=== PATIENT | female | born 1965 | race Hispanic/Latino ===

== ENCOUNTER → 2019-04-20 | Outpatient (CLI) | payer OTHER ==
[~2019-04-20] MED LIST: AEC81 PO; AMLO5TAB4 PO; DULO40CA2 PO; FLUT16H NASAL; GABA-531 PO; LOSA1TAB12 PO; SIMV-43 PO; SIMV10TA97 PO
== END | disposition home or self-care (01) ==
LOC: OIH 12:44
PROVIDERS: ATTEND Family Medicine
DX: R07.9 Chest pain, unspecified (principal); I63.9 Cerebral infarction, unspecified
CPT/HCPCS: 71046

== ENCOUNTER 2019-12-08 10:22 | Emergency (ER) | payer OTHER, SELFPAY ==
[2019-12-08 11:21] LABS: BASOPHILS % (AUTO) 0.2 % (0.0-5.0); EOSINOPHILS % (AUTO) 0.2 % (0.0-8.0); HEMATOCRIT 40.1 % (36-48); LYMPHOCYTES % (AUTO) 4.3 % (21.0-51.0); MEAN CORPUSCULAR HEMOGLOBIN 28.7 pg (27.0-33.0); MEAN CORPUSCULAR HGB CONC 32.9 g/dL (32.0-36.0); MEAN CORPUSCULAR VOLUME 87.2 fL (79-99); MONOCYTES % (AUTO) 3.9 % (3.0-13.0); PLATELET COUNT (AUTO) 248 K/uL (130-400); RED CELL DISTRIBUTION WIDTH 13.8 % (11.0-15.5); WHITE BLOOD COUNT (AUTO) 16.6 K/uL (4.8-10.8)
[2019-12-08] MEDS ORDERED: SODIUM CHLORIDE 0.9% 1000ML 1,000 ML IV ONE (11:23)
[2019-12-08] MEDS ORDERED: METOCLOPRAMIDE 10 MG/2 ML VIAL ONE (11:23)
[2019-12-08] MEDS ORDERED: KETOROLAC TROMETHAMINE 30MG/ML ONE (11:23)
[2019-12-08] MEDS ORDERED: ONDANSETRON HCL 4 MG/2 ML VIAL ONE (11:23)
[2019-12-08 11:41] LABS: CREATININE 0.9 mg/dL (0.5-1.5); POTASSIUM 3.5 mmol/L (3.5-5.1)
[2019-12-08 11:46] LABS: ALBUMIN 3.6 g/dL (3.5-5.0); BILIRUBIN,TOTAL 3.5 mg/dL (0.2-1.0); TOTAL PROTEIN, SERUM 7.5 g/dL (6.0-8.3)
[2019-12-08 12:32] LABS: INR 1.21 (0.85-1.15); PARTIAL THROMBOPLASTIN TIME 28.3 SEC (26.3-35.5); PROTHROMBIN TIME 12.5 SEC (9.6-11.6)
[2019-12-08] MEDS ORDERED: ZOSYN 3.375GM+NS 50ML 50 ML IV ONE (14:15)
== END 2019-12-08 16:19 | disposition short-term general hospital (02) ==
LOC: EDH 10:22
DX: K81.0 Acute cholecystitis (principal); R51 Headache; R94.5 Abnormal results of liver function studies; Z20.828 Contact with and (suspected) exposure to other viral communicable diseases; I10 Essential (primary) hypertension; M06.9 Rheumatoid arthritis, unspecified; E11.40 Type 2 diabetes mellitus with diabetic neuropathy, unspecified; Z90.710 Acquired absence of both cervix and uterus; Z79.899 Other long term (current) drug therapy
CPT/HCPCS: 36415; 70450; 76705; 80053; 82948; 83690; 84484; 85025; 85610; 85730; 87426; 93005; 96361 ×2; 96365; 96366; 96375; 99285; J1885; J2405; J2543; J2765; J7030

== ENCOUNTER 2023-02-07 11:44 | Emergency (ER) | payer OTHER, MEDICARE ==
[~2023-02-07] VITALS: Ht 157.5 cm; Wt 73.9 kg
[~2023-02-07 11:44] MED LIST changes: -LOSA1TAB12 PO; +[UNRECOGNIZED DRUG - CODE] PO
[2023-02-07 12:36] LABS: BASOPHILS # (AUTO) 0.03 K/uL (0.00-0.20); BASOPHILS % (AUTO) 0.3 % (0.0-5.0); EOSINOPHILS # (AUTO) 0.15 K/uL (0.00-0.70); EOSINOPHILS % (AUTO) 1.6 % (0.0-8.0); HEMATOCRIT 34.5 % (36-48); IMMATURE GRANULOCYTE ABSOLUTE 0.02 K/uL (0-1); LYMPHOCYTES # (AUTO) 3.3 K/uL (1.0-4.8); LYMPHOCYTES % (AUTO) 35.2 % (21.0-51.0); MEAN CORPUSCULAR HEMOGLOBIN 24.5 pg (27.0-33.0); MEAN CORPUSCULAR VOLUME 78.9 fL (79-99); MONOCYTES # (AUTO) 0.6 K/uL (0.1-1.0); MONOCYTES % (AUTO) 5.9 % (3.0-13.0); NEUTROPHILS # (AUTO) 5.3 K/uL (1.8-7.7); NEUTROPHILS % (AUTO) 56.8 % (40.0-77.0); PLATELET COUNT (AUTO) 354 K/uL (130-400); RED BLOOD CELL COUNT(AUTO) 4.37 MIL/uL (4.00-5.50); RED CELL DISTRIBUTION WIDTH 17.6 % (11.0-15.5); WHITE BLOOD COUNT (AUTO) 9.3 K/uL (4.8-10.8)
[2023-02-07 12:47] LABS: CREATININE 0.6 mg/dL (0.5-1.5); POTASSIUM 3.7 mmol/L (3.5-5.1)
[2023-02-07] MEDS ORDERED: METH-811 PO (12:49)
[2023-02-07] MEDS ORDERED: CHOL500051 PO (12:49)
[2023-02-07] MEDS ORDERED: MAGN100C5 PO (12:49)
[2023-02-07] MEDS ORDERED: METF-446 PO (12:49)
[2023-02-07] MEDS ORDERED: DULO60CA64 PO (12:49)
[2023-02-07] MEDS ORDERED: AEC81 PO (12:49)
[2023-02-07] MEDS ORDERED: AMLO-258 PO (12:49)
[2023-02-07 12:54] LABS: ALBUMIN 3.7 g/dL (3.5-5.0); BILIRUBIN,TOTAL 0.3 mg/dL (0.2-1.0); INR 0.94 (0.85-1.15); PROTHROMBIN TIME 10.9 SEC (9.6-11.6); TOTAL PROTEIN, SERUM 7.6 g/dL (6.0-8.3)
[2023-02-07 12:55] LABS: PARTIAL THROMBOPLASTIN TIME 27.3 SEC (26.3-35.5)
[2023-02-07 13:13] LABS: B-TYPE NATRIURETIC PEPTIDE 26 pg/mL (0-100)
[2023-02-07 13:40] VITALS: BP 116/77; PULSE 65; RESP 16; O2SAT 100
[2023-02-07 13:40] LABS: APPEARANCE,URINE CLOUDY (CLEAR); BILIRUBIN,URINE NEGATIVE (NEGATIVE); COLOR,URINE YELLOW (YELLOW); GLUCOSE, URINE (UA) NEGATIVE (NEGATIVE); KETONES,URINE NEGATIVE (NEGATIVE); LEUKOCYTE ESTERASE ,URINE 500 Leu/uL (NEGATIVE); NITRATE,URINE NEGATIVE (NEGATIVE); OCCULT BLOOD,URINE NEGATIVE (NEGATIVE); PH,URINE 6.5 (5.0-8.0); PROTEIN,URINE 30 mg/dL (NEGATIVE)
[2023-02-07 13:42] LABS: ADD UA MICROSCOPIC YES
[2023-02-07 14:01] LABS: BACTERIA,URINE RARE /HPF (None Seen); MUCUS,URINE MANY LPF (None Seen); NON-SQUAMOUS EPITHELIAL CELL 1 /HPF (0-2); SQUAMOUS EPITHELIAL CELL,UR FEW /HPF (0-2); WBC,URINE 51-100 /HPF (0-1)
[2023-02-07] MEDS ORDERED: CEPH500B PO (14:21)
[2023-02-07] MEDS ORDERED: CEPHALEXIN 500 MG CAPSULE PO ONE (14:30)
== END 2023-02-07 14:43 | disposition home or self-care (01) ==
LOC: EDH 11:44
DX: N39.0 Urinary tract infection, site not specified (principal); E11.9 Type 2 diabetes mellitus without complications; E78.00 Pure hypercholesterolemia, unspecified; I10 Essential (primary) hypertension; Z79.82 Long term (current) use of aspirin; Z79.899 Other long term (current) drug therapy; Z86.73 Personal history of transient ischemic attack (TIA), and cerebral infarction without residual deficits; Z90.49 Acquired absence of other specified parts of digestive tract
CPT/HCPCS: 36415; 70450; 71045; 80053; 81001; 82550; 83721; 83880; 84484; 85025; 85610; 85730; 87088; 93005

== ENCOUNTER 2023-12-19 10:04 | Emergency (ER) | payer OTHER ==
[~2023-12-19] VITALS: Ht 157.5 cm; Wt 72.6 kg
[~2023-12-19 10:04] MED LIST changes: +ALBUHFA IH; +AMLO-258 PO; -AMLO5TAB4 PO; +CHOL500051 PO; -DULO40CA2 PO; +DULO60CA64 PO; -FLUT16H NASAL; -GABA-531 PO; +GABA-534 PO; +LACT1TAB26 PO; +LEVO-70 PO; +METF-446 PO; +METH-811 PO; -SIMV10TA97 PO
[2023-12-19 10:48] LABS: BASOPHILS # (AUTO) 0.04 K/uL (0.00-0.20); BASOPHILS % (AUTO) 0.3 % (0.0-5.0); EOSINOPHILS # (AUTO) 0.39 K/uL (0.00-0.70); EOSINOPHILS % (AUTO) 2.8 % (0.0-8.0); HEMATOCRIT 40.7 % (36-48); IMMATURE GRANULOCYTE ABSOLUTE 0.06 K/uL (0-1); LYMPHOCYTES # (AUTO) 3.5 K/uL (1.0-4.8); LYMPHOCYTES % (AUTO) 25.2 % (21.0-51.0); MEAN CORPUSCULAR HEMOGLOBIN 28.8 pg (27.0-33.0); MEAN CORPUSCULAR HGB CONC 32.9 g/dL (32.0-36.0); MEAN CORPUSCULAR VOLUME 87.5 fL (79-99); MONOCYTES # (AUTO) 0.8 K/uL (0.1-1.0); MONOCYTES % (AUTO) 5.7 % (3.0-13.0); NEUTROPHILS # (AUTO) 9.2 K/uL (1.8-7.7); NEUTROPHILS % (AUTO) 65.6 % (40.0-77.0); PLATELET COUNT (AUTO) 311 K/uL (130-400); RED BLOOD CELL COUNT(AUTO) 4.65 MIL/uL (4.00-5.50)
[2023-12-19 11:00] LABS: CREATININE 0.8 mg/dL (0.5-1.0); POTASSIUM 3.3 mmol/L (3.5-5.1)
[2023-12-19] MEDS: KETOROLAC 60 MG VIAL (30MG/ML) IM ONE (13:52)
[2023-12-19] MEDS: cefTRIAXone 1G VIAL IM ONE (13:52)
[2023-12-19] MEDS ORDERED: CLIN-141 PO (14:07)
[2023-12-19 14:45] VITALS: BP 128/74; PULSE 82; RESP 18; O2SAT 96
== END 2023-12-19 14:54 | disposition home or self-care (01) ==
LOC: EDH 10:04
DX: L03.115 Cellulitis of right lower limb (principal); E11.9 Type 2 diabetes mellitus without complications; E78.00 Pure hypercholesterolemia, unspecified; I10 Essential (primary) hypertension; Z79.82 Long term (current) use of aspirin; Z79.84 Long term (current) use of oral hypoglycemic drugs; Z79.899 Other long term (current) drug therapy; Z86.73 Personal history of transient ischemic attack (TIA), and cerebral infarction without residual deficits; Z90.710 Acquired absence of both cervix and uterus; Z98.890 Other specified postprocedural states
CPT/HCPCS: 99284; 80048; 85025; 36415; 96372 ×2; J0696; J1885

== ENCOUNTER 2024-03-27 14:06 | Emergency (ER) | payer OTHER ==
[~2024-03-27] VITALS: Ht 157.5 cm; Wt 74.8 kg
[~2024-03-27 14:06] MED LIST changes: +CLIN-141 PO
--- NOTE | 2024-03-27 14:35 | ERN ---
ED Note History of Present Illness Stated Complaint: FEVER Chief Complaint: Fever Time Seen by MD: 14:14 Dictation: This 58-year-old female presents in the emergency department with high fever, chills, headache, myalgias and arthralgias and a dry cough. Symptoms began two days ago Her granddaughter had a febrile illness a couple of days ago but was not sick enough to go to the doctor. The patient has been under treatment for urinary tract infection and recently had been on Keflex in late February. That was followed my nitrofurantoin and fluconazole from her x ray technologist. She uses a nebulizer and is taking some pybb-eyy-gzedznq cold medication that includes acetaminophen 325 mg which she took 2 hours ago. She states the headache is severe bifrontal but there was no stiff neck or photophobia. She has not had nausea or vomiting. Her cough is dry. She is urinating normally. The patient reports a history of asthma and uses a nebulizer at home. She has diabetes, hypertension, hyperlipidemia and has had a hysterectomy. She lives at home with family. She is a social drinker. She does not smoke or use recreational drugs Allergies: Coded Allergies: No Known Allergies (Verified Allergy, Unknown, 12/08/18) Home Meds Active Scripts Clindamycin HCl (Clindamycin HCl) 300 Mg Capsule, 1 CAP PO QID for 7 Days, #28 CAP 0 Refills Prov:JAVY CAPONE MD 12/19/23 Lactobacillus Acidophilus (Probiotic Acidophilus) 2 Billion Cell Tablet, 1 EACH PO ACHS for 5 Days, #20 TAB Prov:EMILY THAKKAR NP 06/03/23 Levofloxacin (Levofloxacin) 500 Mg Tablet, 500 MG PO DAILY for 5 Days, #5 TAB Prov:EMILY THAKKAR NP 06/03/23 Simvastatin (Simvastatin) 20 Mg Tablet, 40 MG PO HS for 30 Days, #30 TAB Prov:DUNCAN GREGORY Jr., MD 12/17/18 Reported Medications Albuterol Sulfate (Ventolin Hfa/Proventil Hfa/Proair Hfa) 90 Mcg Puff, 90 MCG IH AD PRN for WHEEZING, INHALER 06/01/23 Gabapentin (Gabapentin) 400 Mg Capsule, 300 MG PO TID, CAP 06/01/23 Methocarbamol (Methocarbamol) 500 Mg Tablet, 500 MG PO Q6HPRN PRN for MUSCLE SPASMS, TAB 02/07/23 Cholecalciferol (Vitamin D3) (Vitamin D3) 125 Mcg (5000 Unit) Capsule, 125 MCG PO DAILY, CAP 02/07/23 Aspirin (ASPIRIN 81 MG ECTAB) 81 Mg Ectab, 81 MG PO DAILY, TAB.EC 02/07/23 Metformin HCl (Metformin HCl) 1,000 Mg Tablet, 1000 MG PO BIDMEALS, TAB 02/07/23 Duloxetine HCl (Duloxetine HCl) 60 Mg Capsule.dr, 60 MG PO DAILY, CAP 02/07/23 Amlodipine Besylate (Amlodipine Besylate) 10 Mg Tablet, 10 MG PO DAILY for 30 Days, #30 TAB 0 Refills 02/07/23 Losartan/Hydrochlorothiazide (Hyzaar 100-25 Tablet) 1 Each Tablet, 1 EACH PO DAILY, TAB 12/08/18 Past Medical History Past Medical History: Diabetes-Type II, High Cholesterol, Hypertension Additional Past Medical Hx: stroke 2019 left weakness Surgical History: Hysterectomy Surgical History Other: ABD SX, LT BREAST SX RN Note Reviewed/Agreed w/PFSH: Yes Review of System Dictation All pertinent systems reviewed, negative except as documented in the HPI The ROS is obtained from patient GENERAL/CONSTITUTIONAL: Negative except as documented in HPI. ENT: Negative except as documented in HPI. CARDIOVASCULAR: Negative except as documented in HPI. RESPIRATORY: Negative except as documented in HPI. GASTROINTESTINAL: Negative except as documented in HPI. GENITOURINARY: Negative except as documented in HPI. MUSCULOSKELETAL: Negative except as documented in HPI. SKIN: Negative except as documented in HPI. NEUROLOGIC: Negative except as documented in HPI. Initial Vital Sign VS Vital Signs Date Time Temp Pulse Resp B/P (MAP) Pulse Ox O2 Delivery O2 Flow Rate FiO2 03/27/24 14:13 102.2 105 20 118/75 96 Room Air 0 03/27/24 14:42 21 Physical Exam Dictation VITAL SIGNS: note is made of triage vital signs. The patient is able to ambulate to and from the bathroom without difficulty on arrival CONSTITUTIONAL: This is a febrile patient who is awake, alert, and appropriately interactive. HEAD: Normocephalic, Atraumatic. EYES: Periorbital areas with no swelling, redness, or edema. Lids and lashes are normal. Conjunctival injection is absent. Sclera anicteric. Pupils equal, round, reactive to light. ENT: No nasal discharge noted. Posterior pharynx is without exudate, redness, swelling, masses, or evidence of obstruction. Uvula midline. Mucous membranes dry NECK: Trachea midline, no masses palpated, and no cervical lymphadenopathy. No swelling. Supple, full range of motion without nuchal rigidity. No vertebral point tenderness. No meningismus. CHEST/AXILLA: Normal chest wall appearance and motion. No tenderness. No crepitus. CV: Normal rate, regular rhythm. No murmur. No edema. RESPIRATORY:Respiratory rate is normal. Bilateral equal breath sounds with good airflow. Mild inspiratory and expiratory wheezing noted. No increased work of breathing, no retractions. Dry cough is noted ABDOMEN: Inspection normal. No distention is appreciated. Bowel sounds are normal. No mass or organomegaly is appreciated. There is no tenderness. No rebound. No rigidity. No voluntary or involuntary guarding. BACK: Inspection is normal. No midline tenderness is appreciated. The patient appears comfortable when moving. : No CVA tenderness or bladder tenderness. SKIN: Hot to the touch with normal turgor. No diaphoresis Capillary refill less than 3 seconds. Normal color.No rash. No cellulitis or abscess. No evidence of acute injury. MS/Extremity: There is no calf tenderness. Baseline range of motion is noted in all 4 extremities. There are no deformities. NEURO: Awake and alert, lucid. Facies symmetric and speech is clear. Motor strength 5/5 in all extremities. Sensory grossly intact. PSYCH: Patient is appropriately attentive and cooperative without evidence of hallucination. IVF Sepsis Management BMI >30kg/m2?: Yes Results (Laboratory/Radiology) Laboratory/Radiology Laboratory Tests Test 03/27/24 14:34 03/27/24 15:51 White Blood Count 12.1 K/uL (4.8-10.8) H Red Blood Count 5.02 MIL/uL (4.00-5.50) Hemoglobin 14.1 g/dL (12.0-16.0) Hematocrit 42.7 % (36-48) Mean Corpuscular Volume 85.1 fL (79-99) Mean Corpuscular Hemoglobin 28.1 pg (27.0-33.0) Mean Corpuscular Hemoglobin Concent 33.0 g/dL (32.0-36.0) Red Cell Distribution Width 15.3 % (11.0-15.5) Platelet Count 260 K/uL (130-400) Mean Platelet Volume 10.0 fL (7.5-10.5) Immature Granulocyte % (Auto) 0.4 % (0-1) Neutrophils (%) (Auto) 82.0 % (40.0-77.0) H Lymphocytes (%) (Auto) 9.4 % (21.0-51.0) L Monocytes (%) (Auto) 7.3 % (3.0-13.0) Eosinophils (%) (Auto) 0.5 % (0.0-8.0) Basophils (%) (Auto) 0.4 % (0.0-5.0) Neutrophils # (Auto) 9.9 K/uL (1.8-7.7) H Lymphocytes # (Auto) 1.1 K/uL (1.0-4.8) Monocytes # (Auto) 0.9 K/uL (0.1-1.0) Eosinophils # (Auto) 0.06 K/uL (0.00-0.70) Basophils # (Auto) 0.05 K/uL (0.00-0.20) Absolute Immature Granulocyte (auto 0.05 K/uL (0-1) Nucleated Red Blood Cells 0.0 % (0.0-0.19) White Cell Morphology Comment See comments Sodium Level 136 mmol/L (136-145) Potassium Level 3.8 mmol/L (3.5-5.1) Chloride Level 100 mmol/L (101-111) L Carbon Dioxide Level 30 mmol/L (21-32) Blood Urea Nitrogen 13 mg/dL (7-18) Creatinine 0.8 mg/dL (0.5-1.0) Glomerular Filtration Rate Calc 86 mL/min (>90) Random Glucose 169 mg/dL (70-105) H Lactic Acid Level 2.0 mmol/L (0.8-2.5) Total Calcium 8.9 mg/dL (8.5-10.1) B-Type Natriuretic Peptide 9 pg/mL (0-100) Influenza Type A Antigen Positive For Type A Influenza Type B Antigen Negative For Type B SARS-CoV-2, RNA, NAAT NEGATIVE SARS CoV-2 Group A Streptococcus Rapid negative (NEGATIVE) Urine Color LIGHT-YELLOW (YELLOW) Urine Appearance CLEAR (CLEAR) Urine pH 6.0 (5.0-8.0) Urine Specific [place] 1.006 (1.001-1.031) Urine Protein NEGATIVE mg/dL (NEGATIVE) Urine Glucose (UA) 70 mg/dL (NEGATIVE) H Urine Ketones NEGATIVE mg/dL (NEGATIVE) Urine Occult Blood +- (TRACE) (NEGATIVE) H Urine Nitrate NEGATIVE (NEGATIVE) Urine Bilirubin NEGATIVE mg/dL (NEGATIVE) Urine Urobilinogen 0.2 mg/dL (0.2-1.0) Urine Leukocyte Esterase NEGATIVE Hallie/uL Urine RBC 0-1 /HPF (0-1) Urine WBC 0-1 /HPF (0-1) Urine Squamous Epithelial Cells FEW /HPF (0-2) Urine Bacteria FEW /HPF (None Seen) Labs Reviewed?: Yes X-RAY Comment: Institution : [facility] Accession No. 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 The pulmonary vascularity and rosalba appear normal. No abnormal pulmonary parenchymal opacity or consolidation identified. No significant pleural effusion noted. No pneumothorax detected. IMPRESSION: No radiographic evidence for any acute cardiopulmonary process. DICTATED BY: ADAL MELÉNDEZ MD DATE: 03/27/241433 ELECTRONICALLY SIGNED BY: ADAL MELÉNDEZ MD DATE: 03/27/24 1437 ED Course ED Course Orders Procedure Category Date Status Time Cbc With Differential LAB 03/27/24 Complete 14:18 Blood Cult SEA 03/27/24 In Process 14:18 Urinalysis Profile LAB 03/27/24 Complete 14:18 Chest 1vw RAD 03/27/24 Resulted 14:18 0.9%Nacl 1000ml (Ns PHA 03/27/24 In Process 1000ml) 14:30 Lactic Acid LAB 03/27/24 Complete 14:18 Basic Metabolic Panel LAB 03/27/24 Complete 14:18 Influenza Type A & B, LAB 03/27/24 Complete Rapid 14:18 Rapid (Group A Strep) LAB 03/27/24 Complete 14:18 Covid Rna Naat LAB 03/27/24 Complete 14:18 B-Type Natriuretic LAB 03/27/24 Complete Peptide 14:18 Ibuprofen 600 Mg PHA 03/27/24 Complete Tablet (Motrin) 14:30 Ipratropium/Albuterol PHA 03/27/24 Complete Neb (Duoneb) 14:30 Oseltamivir Phosphate PHA 03/27/24 Complete (Tamiflu) 15:30 Methylprednisolone PHA 03/27/24 Complete Succ 125mg (Solu-Medr 15:30 Current Medications Medications (Trade) Dose Ordered Sig/Satinder Route PRN Reason Start Time Stop Time Status Last Admin Dose Admin Albuterol (DUOneb) 1 udvial ONCE ONCE IH 03/27/24 14:30 03/27/24 14:31 DC 03/27/24 15:04 Ibuprofen (moTRIN) 600 mg ONCE ONCE PO 03/27/24 14:30 03/27/24 14:31 DC 03/27/24 14:39 Methylprednisolone Sodium Succinate (Solu-medROL 125MG) 125 mg ONCE ONCE IVP 03/27/24 15:30 03/27/24 15:31 DC 03/27/24 15:38 Oseltamivir Phosphate (Tamiflu) 75 mg ONCE ONCE PO 03/27/24 15:30 03/27/24 15:31 DC 03/27/24 15:13 Sodium Chloride 2,244 ml @ 748 mls/hr ONCE ONCE IV 03/27/24 14:30 03/27/24 17:29 03/27/24 14:39 Vital Signs Date Time Temp Pulse Resp B/P (MAP) Pulse Ox O2 Delivery O2 Flow Rate FiO2 03/27/24 16:06 100.0 80 20 108/64 94 Room Air* 0 21 03/27/24 15:14 100.2 84 18 103/61 96 Room Air* 0 21 03/27/24 15:07 93 18 03/27/24 14:42 102.0 95 18 109/72 96 Room Air* 0 21 03/27/24 14:13 102.2 105 20 118/75 96 Room Air 0 Medical Decision Making MDM INITIAL IMPRESSION Initial history and physical concerning for URI symptoms with fever we will patient with multiple medical problems Viral syndrome versus pneumonia versus possible sepsis. Exam is not suggestive of meningitis Chest pain is only present with cough. I have no reason to suspect cardiac ischemia or an acute abdomen Contributing medical problems: Patient has been on several antibiotics recently. I have reviewed the triage nursing notes and vital signs. Patient has fever with a well-preserved blood pressure and mild tachycardia. Saturation is good Initial plan: Septic workup, IV fluids, antipyretics. Antibiotics only as indicated DATA REVIEW I have reviewed additional NN, repeat VS, and monitoring where indicated. Patient has defervesced. She is ambulatory without difficulty. Mcdonald diagnostic results: Sugar is mildly elevated at 169 and a flu a is positive. White count is 12.1 with 82% segs. Hemoglobin and platelets are normal. Lactic acid is 2.0. BNP is negative and the chest x-ray is clear per Radiology Other independent historian: none Review of external data: None. ED COURSE Interventions: Patient received IV fluids, antipyretics and respiratory treat ment as well as some steroids for wheezing Reassessment: Repeat examination shows decreased wheezing and no evidence of respiratory distress. Patient is feeling much better DISPOSITION Final diagnostic impression: Influenza a with wheezing I discussed my findings, clinical impression and treatment recommendations with the patient. I have reviewed the social factors contributing to the patient's presentation and disposition planning. My final plan for disposition was made based upon clinical findings, response to treatment and discussion with the patient regarding management options. Hospitalization is not indicated due to low risk of short term progression, complication, morbidity or mortality related to the current diagnosis At the time of discharge, the vital signs are within acceptable limits. Patient has been able to take oral liquids. The discharge treatment plan includes Tamiflu, nebulized treatments and fever management I advised the patient that the flu tablet she was taking contain only 325 mg of acetaminophen which may be too low to control the fever alone. Incidental findings discussed: none Questions were invited and answered in layman's terms. I have emphasized my follow-up recommendations and reviewed ED return precautions. I have answered any questions in layman's terms. The patient understands that they will have to arrange for out-patient follow-up for recheck of today's condition. The patient is stable and appropriate for discharge from the ED. This dictation was prepared using Hango voice recognition software. Occasional voice recognition errors may occur. When identified, these errors have been corrected. While every attempt is made to correct errors during dictation, errors may still exist. DX & DISP Disposition: Discharge Decision to Admit Date: Mar 27, 2024 Decision to Admit Time: 16:19 Departure Impression: Primary Impression: Influenza A Additional Impressions: Asthma exacerbation, Dehydration, Fever Condition: Stable Scripts Oseltamivir Phosphate (Tamiflu) 75 Mg Cap 75 MG PO BID, #10 CAP 0 Refills Prov: JAVY CAPONE MD 03/27/24 Additional Instructions: Take the Tamiflu one capsule 2 times a day for five days. Use the nebulizer up to 4 times a day to control cough and wheeze. For increasing shortness of breath return to the emergency department. Be sure to use adequate fever medication, mwyi-zkb-nsaladt acetaminophen to regular strength tablets every 4-6 hours or ibuprofen three tsdv-vap-jgmjmbg tablets every 6-8 hours. Increase fluid intake while you are sick and monitor your blood sugar as it may go up while you fight the infection. Return to the emergency department if you are unable to eat or drink, if you develop increasing respiratory difficulty or other worsening. Expect to be ill for several days. Referrals: BRYCE CHILDS PA-C (PCP) Time of Disposition: 16:22 JAVY CAPONE MD Mar 27, 2024 14:35
[2024-03-27] MEDS: ibuPROFEN 600 MG TABLET PO ONE (14:39)
[2024-03-27] MEDS: [UNRECOGNIZED DRUG - OTHER] IV ONE (14:39)
[2024-03-27 14:46] LABS: BASOPHILS # (AUTO) 0.05 K/uL (0.00-0.20); BASOPHILS % (AUTO) 0.4 % (0.0-5.0); EOSINOPHILS # (AUTO) 0.06 K/uL (0.00-0.70); EOSINOPHILS % (AUTO) 0.5 % (0.0-8.0); HEMATOCRIT 42.7 % (36-48); IMMATURE GRANULOCYTE ABSOLUTE 0.05 K/uL (0-1); LYMPHOCYTES # (AUTO) 1.1 K/uL (1.0-4.8); LYMPHOCYTES % (AUTO) 9.4 % (21.0-51.0); MEAN CORPUSCULAR HEMOGLOBIN 28.1 pg (27.0-33.0); MEAN CORPUSCULAR VOLUME 85.1 fL (79-99); MONOCYTES # (AUTO) 0.9 K/uL (0.1-1.0); MONOCYTES % (AUTO) 7.3 % (3.0-13.0); NEUTROPHILS # (AUTO) 9.9 K/uL (1.8-7.7); PLATELET COUNT (AUTO) 260 K/uL (130-400); RED BLOOD CELL COUNT(AUTO) 5.02 MIL/uL (4.00-5.50); RED CELL DISTRIBUTION WIDTH 15.3 % (11.0-15.5); WHITE BLOOD COUNT (AUTO) 12.1 K/uL (4.8-10.8)
[2024-03-27 14:55] LABS: CREATININE 0.8 mg/dL (0.5-1.0); POTASSIUM 3.8 mmol/L (3.5-5.1); RAPID GROUP A STREP negative (NEGATIVE)
[2024-03-27 15:00] LABS: SARS-CoV-2, RNA, NAAT NEGATIVE SARS CoV-2 (NEGATIVE)
[2024-03-27] MEDS: IpraTROPium/alBUTERol SULFATE 3 ML SOLUTION IH ONE (15:04)
[2024-03-27 15:06] LABS: INFLUENZA TYPE B Negative For Type B (NEGATIVE)
[2024-03-27 15:07] VITALS: PULSE 93; RESP 18
[2024-03-27 15:09] LABS: INFLUENZA TYPE A Positive For Type A (NEGATIVE)
[2024-03-27 15:13] VITALS: TEMP 100.1
[2024-03-27] MEDS: OSELTAMIVIR PHOSPHATE 75 MG CAP PO ONE (15:13)
[2024-03-27 15:27] LABS: B-TYPE NATRIURETIC PEPTIDE 9 pg/mL (0-100)
[2024-03-27] MEDS: Solu-medROL 125MG VIAL IVP ONE (15:38)
[2024-03-27 16:03] LABS: ADD UA MICROSCOPIC YES; APPEARANCE,URINE CLEAR (CLEAR); BILIRUBIN,URINE NEGATIVE (NEGATIVE); COLOR,URINE LIGHT-YELLOW (YELLOW); GLUCOSE, URINE (UA) 70 mg/dL (NEGATIVE); KETONES,URINE NEGATIVE (NEGATIVE); LEUKOCYTE ESTERASE ,URINE NEGATIVE Leu/uL (NEGATIVE); NITRATE,URINE NEGATIVE (NEGATIVE); PROTEIN,URINE NEGATIVE (NEGATIVE); UROBILINOGEN,URINE 0.2 mg/dL (0.2-1.0)
[2024-03-27 16:04] LABS: BACTERIA,URINE FEW /HPF (None Seen); RBC,URINE 0-1 /HPF (0-1); SQUAMOUS EPITHELIAL CELL,UR FEW /HPF (0-2); WBC,URINE 0-1 /HPF (0-1)
[2024-03-27 16:06] VITALS: BP 108/64; PULSE 80; RESP 20; TEMP 100.1; O2SAT 94
[2024-03-27] MEDS ORDERED: OSEL75 PO (16:20)
== END 2024-03-27 16:27 | disposition home or self-care (01) ==
LOC: EDH 14:06
DX: J10.1 Influenza due to other identified influenza virus with other respiratory manifestations (principal); J45.901 Unspecified asthma with (acute) exacerbation; E86.0 Dehydration; E11.9 Type 2 diabetes mellitus without complications; E78.00 Pure hypercholesterolemia, unspecified; I10 Essential (primary) hypertension; Z20.822 Contact with and (suspected) exposure to COVID-19; Z79.82 Long term (current) use of aspirin; Z79.899 Other long term (current) drug therapy; Z86.73 Personal history of transient ischemic attack (TIA), and cerebral infarction without residual deficits; Z90.710 Acquired absence of both cervix and uterus
CPT/HCPCS: 99284; 96374; 71045; 87635; 96361; 80048; 83880; 85025; 87040 ×2; 87880; 87804 ×2; 83605; 81001; 36415; 94640; J7030; J2919

== ENCOUNTER → 2024-08-20 | Outpatient (CLI) | payer OTHER, MEDICARE ==
[~2024-08-20] MED LIST changes: +IOHEXOL 350 MG/ML 100ML INFUS..BTL IV ONE; +OSEL75 PO
--- NOTE | 2024-08-20 12:06 | HMCIMG ---
CT ABDOMEN/PELVIS W/WO CONTRAS HISTORY: Renal cysts COMPARISON: None TECHNIQUE: Multiple sequential axial images of the abdomen and pelvis were obtained from the dome of the diaphragm through symphysis pubis. Patient was given 100 cc of Omnipaque through intravenous route. Oral contrast was given. FINDINGS: No pleural effusion is seen bilaterally. There is no evidence of parenchymal disease or pulmonary nodule of the visualized lower lungs. Degenerative changes of the thoracolumbar spine are present. The heart is not enlarged. Liver measured 10.6 mm. No bowel obstruction is seen.. Spleen is small in size measuring 3.3 cm.. The liver, adrenal glands and pancreas are unremarkable. There is no evidence of hydronephrosis bilaterally. No evidence of renal stone is seen. Fecal material is seen in the colon. There are normal size retroperitoneal and mesenteric lymph nodes. No ascites is seen. No definite CT evidence of acute appendicitis is seen. Uterus is not seen Pelvic sidewalls are symmetric bilaterally. Bladder is poorly distended with apparent wall thickening. There is mild diverticulosis. IMPRESSION: 1. Small spleen. Mild diverticulosis. No bowel obstruction. CT was performed with one or more following dose reduction techniques: automated exposure control, adjustment of the mA and kv according to patient's size, or use of a iterative reconstruction technique.
== END | disposition home or self-care (01) ==
LOC: RAH 10:48
PROVIDERS: ATTEND Internal Medicine Nephrology
DX: N28.1 Cyst of kidney, acquired (principal); M47.815 Spondylosis without myelopathy or radiculopathy, thoracolumbar region; K57.90 Diverticulosis of intestine, part unspecified, without perforation or abscess without bleeding
CPT/HCPCS: 74178; Q9967

== ENCOUNTER 2024-11-23 18:20 | Emergency (ER) | payer OTHER, MEDICARE ==
[~2024-11-23] VITALS: Ht 157.5 cm; Wt 73.0 kg
[~2024-11-23 18:20] MED LIST changes: -IOHEXOL 350 MG/ML 100ML INFUS..BTL IV ONE
[2024-11-23 18:22] VITALS: TEMP 97.6
[2024-11-23] MEDS: FAMOTIDINE 20MG VIAL IV ONE (18:59)
[2024-11-23] MEDS: 0.9%NACL 1000ML 1,000 ML IV ONE (19:00)
[2024-11-23 19:09] LABS: IMMATURE GRANULOCYTE ABSOLUTE 0.07 K/uL (0-1); NUCLEATED RED BLOOD CELLS 0.0 % (0.0-0.19); PLATELET COUNT (AUTO) 273 K/uL (130-400); RED BLOOD CELL COUNT(AUTO) 4.65 MIL/uL (4.00-5.50); RED CELL DISTRIBUTION WIDTH 14.6 % (11.0-15.5); WHITE BLOOD COUNT (AUTO) 17.8 K/uL (4.8-10.8)
[2024-11-23 19:14] LABS: SARS-CoV-2, RNA, NAAT NEGATIVE SARS CoV-2 (NEGATIVE)
[2024-11-23 19:17] LABS: CREATININE 0.7 mg/dL (0.5-1.0); GLOMERULAR FILTR. RATE CALC 101.0 mL/min (>90); GLUCOSE,RANDOM 164.0 mg/dL (70-105); SODIUM SERUM 137.0 mmol/L (136-145); UREA NITROGEN, BLOOD 14.0 mg/dL (7-18)
[2024-11-23 19:19] LABS: INFLUENZA TYPE A Negative For Type A (NEGATIVE); INFLUENZA TYPE B Negative For Type B (NEGATIVE)
[2024-11-23 19:29] LABS: ASPARTATE AMINOTRANSFERASE 32.0 U/L (10-37); TOTAL PROTEIN, SERUM 7.5 g/dL (6.0-8.3)
[2024-11-23 20:03] LABS: RAPID GROUP A STREP positive (NEGATIVE)
[2024-11-23] MEDS ORDERED: IOHEXOL-350 75 ML VIAL IV ONE (20:06)
--- NOTE | 2024-11-23 21:00 | HMCIMG ---
EXAM: CT Abdomen and Pelvis with IV contrast CLINICAL HISTORY: Diffuse abdominal pain with leukocytosis. TECHNIQUE: Axial computed tomography images of the abdomen and pelvis with intravenous contrast. CONTRAST: with intravenous contrast. COMPARISON: CT dated August 20, 2024. FINDINGS: LUNG BASES: Fibroatelectatic changes in both lower lobes. The rest of the lung bases appear clear. No pleural effusions are seen. Mildly elevated right hemidiaphragm, concerning eventration. LIVER: Hepatic steatosis. GALLBLADDER AND BILE DUCTS: The gallbladder is surgically absent. No biliary ductal dilatation is evident. PANCREAS: Unremarkable. SPLEEN: There are two rounded structures in the region of the spleen, measuring approximately 5 x 4.5 cm and 4.5 x 2.8 cm, respectively, which may represent splenules. No interval changes since the prior CT. ADRENAL GLANDS: 1.4 x 1.2 cm left adrenal nodule. KIDNEYS, URETERS, AND BLADDER: 1.4 x 1.2 cm cyst within the interpolar region of the right kidney. 1.1 x 1 cm cyst within the lower polar region of the right kidney. 0.8 cm cyst within the interpolar region of the left kidney. 0.8 cm cyst within the upper polar region of the left kidney. The rest of the kidneys appear within normal limits. There is no hydronephrosis or hydroureter. No urinary calculi are seen. STOMACH AND BOWEL: The stomach is distended. Mild circumferential wall thickening of the pylorus of the stomach, the maximum wall thickness measuring up to 1.1 cm. No evidence of bowel obstruction. No evidence suggesting enteritis or colitis. APPENDIX: Normal appendix. PERITONEUM: No free fluid. No free air. LYMPH NODES: No lymphadenopathy is evident. REPRODUCTIVE: Unremarkable as visualized. VASCULATURE: No evidence of abdominal aortic aneurysm. BONES: No aggressive appearing osseous lesion. No acute osseous pathology evident. IMPRESSION: Distended stomach with mild circumferential wall thickening of the pylorus of the stomach. Recommend endoscopy correlation. Stable bilateral renal cysts. No hydronephrosis. No bowel obstruction or inflammation. Normal appendix. Fatty liver. /[place] [address]
[2024-11-23] MEDS ORDERED: ONDA-243 PO (22:23)
[2024-11-23] MEDS ORDERED: AMOX1TAB16 PO (22:23)
--- NOTE | 2024-11-23 22:24 | ERN ---
General Chief Complaint: Abdominal Pain Stated Complaint: ABD PAIN R/T MOUNJARO Time Seen by MD: 18:30 Time Seen by Midlevel: 18:30 Source: patient History of Present Illness Initial Comments The patient is a 58-year-old female with a past medical history of type 2 diabetes presenting to the emergency department for evaluation of midepigastric abdominal pain that radiates to her back. She has a has associated bloating and increased burping. She started Mounjaro two weeks ago and is currently on 2.5 mg. She also reports a sore throat that started several days ago and worsened today. Denies any other symptoms. Allergies: Coded Allergies: No Known Allergies (Verified Allergy, Unknown, 12/08/18) Home Meds Active Scripts Oseltamivir Phosphate (Tamiflu) 75 Mg Cap, 75 MG PO BID, #10 CAP 0 Refills Prov:JAVY CAPONE MD 03/27/24 Clindamycin HCl (Clindamycin HCl) 300 Mg Capsule, 1 CAP PO QID for 7 Days, #28 CAP 0 Refills Prov:JAVY CAPONE MD 12/19/23 Lactobacillus Acidophilus (Probiotic Acidophilus) 2 Billion Cell Tablet, 1 EACH PO ACHS for 5 Days, #20 TAB Prov:EMILY THAKKAR NP 06/03/23 Levofloxacin (Levofloxacin) 500 Mg Tablet, 500 MG PO DAILY for 5 Days, #5 TAB Prov:EMILY THAKKAR FRUIT PITTER 06/03/23 Simvastatin (Simvastatin) 20 Mg Tablet, 40 MG PO HS for 30 Days, #30 TAB Prov:DUNCAN GREGORY Jr., MD 12/17/18 Reported Medications Albuterol Sulfate (Ventolin Hfa/Proventil Hfa/Proair Hfa) 90 Mcg Puff, 90 MCG IH AD PRN for WHEEZING, INHALER 06/01/23 Gabapentin (Gabapentin) 400 Mg Capsule, 300 MG PO TID, CAP 06/01/23 Methocarbamol (Methocarbamol) 500 Mg Tablet, 500 MG PO Q6HPRN PRN for MUSCLE SPASMS, TAB 02/07/23 Cholecalciferol (Vitamin D3) (Vitamin D3) 125 Mcg (5000 Unit) Capsule, 125 MCG PO DAILY, CAP 02/07/23 Aspirin (ASPIRIN 81 MG ECTAB) 81 Mg Ectab, 81 MG PO DAILY, TAB.EC 02/07/23 Metformin HCl (Metformin HCl) 1,000 Mg Tablet, 1000 MG PO BIDMEALS, TAB 02/07/23 Duloxetine HCl (Duloxetine HCl) 60 Mg Capsule.dr, 60 MG PO DAILY, CAP 02/07/23 Amlodipine Besylate (Amlodipine Besylate) 10 Mg Tablet, 10 MG PO DAILY for 30 Days, #30 TAB 0 Refills 02/07/23 Losartan/Hydrochlorothiazide (Hyzaar 100-25 Tablet) 1 Each Tablet, 1 EACH PO DAILY, TAB 12/08/18 Past Medical History Past Medical History: Diabetes-Type II, High Cholesterol, Hypertension Medical History Other: stroke 2019 left weakness Past Surgical History: Hysterectomy Surgical History Other: ABD SX, LT BREAST SX ROS Dictation CONSTITUTIONAL: Negative except for HPI HEAD/FACE: Negative except for HPI EENT: Negative except for HPI RESPIRATORY: Negative except for HPI GASTROINTESTINAL/ABDOMINAL: Negative except for HPI GENITOURINARY: Negative except for HPI MUSCULOSKELETAL: Negative except for HPI INTEGUMENTARY: Negative except for HPI NEUROLOGICAL/PSYCH: Negative except for HPI HEMATOLOGIC/LYMPHATIC: Negative except for HPI All Systems Negative, Except as noted above. 13 point review of systems assessed and all negative except for above. Physical Exam Physical Exam Dictation Vital Signs reviewed General Appearance: Alert, oriented x 3, no acute distress, well developed, nourished. Head and Face: non-traumatic. Eyes: PERRL, pink conjunctivas, eyelid no trauma, anterior chamber with arcus senilis. Ears: Pinnas intact and no signs of trauma or erythema ear canals clear and no discharge TM no erythema Nose: No discharge, no bleeding. Oropharynx: Mouth normal, tongue pink, pharynx clear, erythema to the posterior oropharynx with bilateral tonsillar exudates, no abscesses noted, mucous membrane moist Neck: Supple, non-tender, no thyromegaly, no masses, no JVD, no bruits Breast:Deferred Chest:No tenderness, no crepitus, no paradoxical movement, no retractions Lungs:Clear, well-ventilated, symmetric, no rales, no wheezing, no rhonchi, no stridor, good breath sounds bilaterally Heart: Regular rate, regular rhythm, no murmur, no gallops Vascular: no peripheral edema, Abdomen: Soft, positive bowel sounds, nondistended, no guarding, nontender, no rebound, no masses no hepatomegaly, no splenomegaly, no Schneider's sign, no hernias. Rectal: Deferred Genital: Deferred Neurological: Normal speech, motor function intact, sensory function intact Musculoskeletal: Neck nontender, full range of motion, back nontender, full range of motion, Extremities: nontender, full range of motion Skin: Color pink, dry, no turgor, no rash, no lacerations, no abrasions, no contusions. Lymphatic: Deferred Results Laboratory and Microbiology Lab and Micro Result Laboratory Tests Test 11/23/24 18:55 11/23/24 19:01 Influenza Type A Antigen Negative For Type A Influenza Type B Antigen Negative For Type B SARS-CoV-2, RNA, NAAT NEGATIVE SARS CoV-2 Group A Streptococcus Rapid positive (NEGATIVE) *A White Blood Count 17.8 K/uL (4.8-10.8) H Red Blood Count 4.65 MIL/uL (4.00-5.50) Hemoglobin 13.9 g/dL (12.0-16.0) Hematocrit 41.4 % (36-48) Mean Corpuscular Volume 89.0 fL (79-99) Mean Corpuscular Hemoglobin 29.9 pg (27.0-33.0) Mean Corpuscular Hemoglobin Concent 33.6 g/dL (32.0-36.0) Red Cell Distribution Width 14.6 % (11.0-15.5) Platelet Count 273 K/uL (130-400) Mean Platelet Volume 10.1 fL (7.5-10.5) Immature Granulocyte % (Auto) 0.4 % (0-1) Neutrophils (%) (Auto) 78.3 % (40.0-77.0) H Lymphocytes (%) (Auto) 14.9 % (21.0-51.0) L Monocytes (%) (Auto) 5.6 % (3.0-13.0) Eosinophils (%) (Auto) 0.6 % (0.0-8.0) Basophils (%) (Auto) 0.2 % (0.0-5.0) Neutrophils # (Auto) 13.9 K/uL (1.8-7.7) H Lymphocytes # (Auto) 2.7 K/uL (1.0-4.8) Monocytes # (Auto) 1.0 K/uL (0.1-1.0) Eosinophils # (Auto) 0.11 K/uL (0.00-0.70) Basophils # (Auto) 0.04 K/uL (0.00-0.20) Absolute Immature Granulocyte (auto 0.07 K/uL (0-1) Nucleated Red Blood Cells 0.0 % (0.0-0.19) Sodium Level 137 mmol/L (136-145) Potassium Level 3.5 mmol/L (3.5-5.1) Chloride Level 98 mmol/L (101-111) L Carbon Dioxide Level 30 mmol/L (21-32) Blood Urea Nitrogen 14 mg/dL (7-18) Creatinine 0.7 mg/dL (0.5-1.0) Glomerular Filtration Rate Calc 101 mL/min (>90) Random Glucose 164 mg/dL (70-105) H Total Calcium 9.6 mg/dL (8.5-10.1) Total Bilirubin 0.5 mg/dL (0.2-1.0) Direct Bilirubin 0.1 mg/dL (0.0-0.3) Aspartate Amino Transf (AST/SGOT) 32 U/L (10-37) Alanine Aminotransferase (ALT/SGPT) 26 U/L (12-78) Alkaline Phosphatase 130 U/L (50-136) Total Protein 7.5 g/dL (6.0-8.3) Albumin 3.6 g/dL (3.5-5.0) Lipase 50 U/L (16-77) Labs Reviewed?: Yes MDM MDM: Differential diagnosis: Strep pharyngitis, dehydration, pancreatitis, There are no social concerns with this patient. Prescription drug management Prescriptions will include: Zofran, Augmentin Medical management and examination interpretation discussions were had by me with other qualified healthcare professionals as indicated for the patient's care. ED Course Orders Procedure Category Date Status Time Cbc With Differential LAB 11/23/24 Complete 18:47 Basic Metabolic Panel LAB 11/23/24 Complete 18:47 Covid Rna Naat LAB 11/23/24 Complete 18:47 Influenza Type A & B, LAB 11/23/24 Complete Rapid 18:47 Rapid (Group A Strep) LAB 11/23/24 Complete 18:47 Hepatic Function Panel LAB 11/23/24 Complete 18:47 Lipase LAB 11/23/24 Complete 18:47 Ondansetron 4mg Inj PHA 11/23/24 Complete (Zofran 4mg Inj) 19:00 Famotidine 20mg Vial PHA 11/23/24 Complete (Pepcid 20mg Vial) 19:00 0.9%Nacl 1000ml (Ns PHA 11/23/24 Complete 1000ml) 19:00 Morphine 2mg Syg PHA 11/23/24 Complete (Morphine 2mg Syg) 19:00 Ct Abdomen/Pelvis CT 11/23/24 Resulted W/Contrast 19:37 Iohexol (Omnipaque) PHA 11/23/24 Complete 20:06 Ceftriaxone 1g Vial PHA 11/23/24 Complete (Rocephine 1g Inj) 20:30 Current Medications Medications (Trade) Dose Ordered Sig/Satinder Route PRN Reason Start Time Stop Time Status Last Admin Dose Admin Ceftriaxone Sodium (ROCEphine 1G INJ) 1 gm ONCE ONCE IVPB 11/23/24 20:30 11/23/24 20:31 DC 11/23/24 20:39 Famotidine (Pepcid 20mg Vial) 20 mg ONCE ONCE IV 11/23/24 19:00 11/23/24 19:01 DC 11/23/24 18:59 Iohexol (Omnipaque) 75 ml STK-MED ONCE IV 11/23/24 20:06 11/23/24 20:06 DC Morphine Sulfate (morPHINE 2MG SYG) 2 mg ONCE ONCE IVP 11/23/24 19:00 11/23/24 19:01 DC 11/23/24 19:01 Ondansetron HCl (zoFRAN 4MG INJ) 4 mg ONCE ONCE IVP 11/23/24 19:00 11/23/24 19:01 DC 11/23/24 18:59 Sodium Chloride 1,000 ml @ 0 mls/hr ONCE ONCE IV 11/23/24 19:00 11/23/24 19:01 DC 11/23/24 19:00 Vital Signs Date Time Temp Pulse Resp B/P (MAP) Pulse Ox O2 Delivery O2 Flow Rate FiO2 11/23/24 19:22 89 16 131/78 98 Room Air* 0 21 11/23/24 18:22 97.9 96 16 136/85 96 Room Air 0 11/23/24 18:22 97.5 96 16 136/85 96 Room Air* 0 21 [place] [id number] [place] [address] IMAGING REPORT Signed PATIENT: YOLANDA US MR#: [id number] : 1965 SEX: F AGE: 58 LOCATION: [facility] ORDER 37 STATUS: REG REPORT#: [id number] SERVICE 36 REASON: diffused abd pain w/leukocytosis ORDERING PHYSICIAN: ANTONIETA OLEA PROCEDURE: ABD PEL W - CT ABDOMEN/PELVIS W/CONTRAST EXAM: CT Abdomen and Pelvis with IV contrast CLINICAL HISTORY: Diffuse abdominal pain with leukocytosis. TECHNIQUE: Axial computed tomography images of the abdomen and pelvis with intravenous contrast. CONTRAST: with intravenous contrast. COMPARISON: CT dated August 20, 2024. FINDINGS: LUNG BASES: Fibroatelectatic changes in both lower lobes. The rest of the lung bases appear clear. No pleural effusions are seen. Mildly elevated right hemidiaphragm, concerning eventration. LIVER: Hepatic steatosis. GALLBLADDER AND BILE DUCTS: The gallbladder is surgically absent. No biliary ductal dilatation is evident. PANCREAS: Unremarkable. SPLEEN: There are two rounded structures in the region of the spleen, measuring approximately 5 x 4.5 cm and 4.5 x 2.8 cm, respectively, which may represent splenules. No interval changes since the prior CT. ADRENAL GLANDS: 1.4 x 1.2 cm left adrenal nodule. KIDNEYS, URETERS, AND BLADDER: 1.4 x 1.2 cm cyst within the interpolar region of the right kidney. 1.1 x 1 cm cyst within the lower polar region of the right kidney. 0.8 cm cyst within the interpolar region of the left kidney. 0.8 cm cyst within the upper polar region of the left kidney. The rest of the kidneys appear within normal limits. There is no hydronephrosis or hydroureter. No urinary calculi are seen. STOMACH AND BOWEL: The stomach is distended. Mild circumferential wall thickening of the pylorus of the stomach, the maximum wall thickness measuring up to 1.1 cm. No evidence of bowel obstruction. No evidence suggesting enteritis or colitis. APPENDIX: Normal appendix. PERITONEUM: No free fluid. No free air. LYMPH NODES: No lymphadenopathy is evident. REPRODUCTIVE: Unremarkable as visualized. VASCULATURE: No evidence of abdominal aortic aneurysm. BONES: No aggressive appearing osseous lesion. No acute osseous pathology evident. IMPRESSION: Distended stomach with mild circumferential wall thickening of the pylorus of the stomach. Recommend endoscopy correlation. Stable bilateral renal cysts. No hydronephrosis. No bowel obstruction or inflammation. Normal appendix. Fatty liver. /[place] DICTATED BY: LORETA REIS MD DATE: 11/23/242158 ELECTRONICALLY SIGNED BY: LORETA REIS MD DATE: 11/23/242158 DX & DISP Disposition: Discharge Departure Impression: Primary Impression: Strep pharyngitis Condition: Stable Scripts Amoxicillin/Potassium Clav (Amox Tr-K Clv 875-125 mg Tab) 875 Mg-125 Mg Tablet 1 EACH PO BID for 7 Days, #14 TAB 0 Refills Prov: ANTONIETA OLEA 11/23/24 Ondansetron (Ondansetron Odt) 4 Mg Tab.rapdis 4 MG PO BID for 7 Days, #14 TAB Prov: ANTONIETA OLEA 11/23/24 Additional Instructions: Your blood work today shows an elevated white blood cell count. You will also tested positive for strep pharyngitis. The elevation in your white blood cell count could be related to this. I have given you 1 g of ceftriaxone in the emergency department and have given you a prescription for Augmentin for outpatient management. We also performed a CT abdomen of the pelvis which reveals abdominal distention. This may be related to the medication (Mounjaro) you are currently on. Please have a conversation with the primary care doctor regarding your side effects. She develop any new or worsening symptoms please report to the ER for further evaluation. Referrals: SELF,REFERRAL (PCP) Time of Disposition: 22:21 I have reviewed the case, and I agree with, Diagnosis and Plan I performed the substantive portion of the visit. I have reviewed and personally made and approve the management plan that is documented in the note by myself or the KYLE. I acknowledge for responsibility for the patient's management plan. ANTONIETA OLEA Nov 23, 2024 22:24
[2024-11-23 22:37] VITALS: BP 124/64; PULSE 85; RESP 16; O2SAT 98
== END 2024-11-23 22:39 | disposition home or self-care (01) ==
LOC: EDH 18:20
DX: J02.0 Streptococcal pharyngitis (principal); E11.9 Type 2 diabetes mellitus without complications; E78.00 Pure hypercholesterolemia, unspecified; I10 Essential (primary) hypertension; Z79.82 Long term (current) use of aspirin; Z79.899 Other long term (current) drug therapy; Z86.73 Personal history of transient ischemic attack (TIA), and cerebral infarction without residual deficits; Z90.710 Acquired absence of both cervix and uterus; Z20.822 Contact with and (suspected) exposure to COVID-19
CPT/HCPCS: 99285; 74177; 96365; 96375; 96361; 87635; 96366; 80076; 80048; 83690; 85025; 87880; 87804 ×2; 36415; J3490; J2270; J7030; J0696; J2405; Q9967

== ENCOUNTER 2024-12-16 08:02 | Emergency (ER) | payer OTHER, MEDICARE ==
[~2024-12-16] VITALS: Ht 157.5 cm; Wt 72.1 kg
[~2024-12-16 08:02] MED LIST changes: +AMOX1TAB16 PO; +ONDA-243 PO
--- NOTE | 2024-12-16 10:26 | HMCIMG ---
EXAM: CT Head Without IV contrast. CLINICAL HISTORY: headache TECHNIQUE: Axial computed tomography images of the head/brain without intravenous contrast. COMPARISON: 02/07/2023 FINDINGS: BRAIN: No evidence of acute hemorrhage. No mass lesion. No CT evidence for acute territorial infarct. No midline shift or extra-axial collections. VENTRICLES: No hydrocephalus. ORBITS: The orbits are unremarkable. SINUSES AND MASTOIDS: The paranasal sinuses and mastoid air cells are clear. BONES: No fracture. SOFT TISSUES: Unremarkable. IMPRESSION: No acute intracranial abnormality. /[place]
--- NOTE | 2024-12-16 10:54 | HMCIMG ---
EXAM: CT Maxillofacial Bones without IV Contrast. CLINICAL HISTORY: Headache with right-sided jaw pain. TECHNIQUE: Thin collimated axial CT images of the maxillofacial bones were obtained with sagittal and coronal reformatted images also submitted. CT scan is done according to ALARA (As Low As Reasonably Achievable). CONTRAST: None. COMPARISON: None provided. FINDINGS: No acute maxillofacial bony injury. The bilateral orbits and orbital contents are within normal limits. Severe chronic sinusitis within the left sphenoid sinus. The remaining paranasal sinuses are clear. The mastoid air cells are clear bilaterally. Nasal cavities and nasopharynx are unremarkable. The imaged portions of the intracranial substances are grossly unremarkable. IMPRESSION: No acute bony abnormality is evident. Severe chronic sinusitis within the left sphenoid sinus. /[place]
[2024-12-16] MEDS ORDERED: DOXY100C5 PO (11:47)
--- NOTE | 2024-12-16 11:47 | ERN ---
ED Note History of Present Illness Stated Complaint: JAW PAIN Chief Complaint: Dental Problem Time Seen by MD: 08:05 Dictation: 58-year-old female presenting to the emergency department with right-sided jaw pain and facial pain over the past few days similar episodes in the past on and off. No fever no LOC or vomiting. Allergies: Coded Allergies: No Known Allergies (Verified Allergy, Unknown, 12/08/18) Home Meds Active Scripts Amoxicillin/Potassium Clav (Amox Tr-K Clv 875-125 mg Tab) 875 Mg-125 Mg Tablet, 1 EACH PO BID for 7 Days, #14 TAB 0 Refills Prov:ANTONIETA OLEA 11/23/24 Ondansetron (Ondansetron Odt) 4 Mg Tab.rapdis, 4 MG PO BID for 7 Days, #14 TAB Prov:ANTONIETA OLEA 11/23/24 Oseltamivir Phosphate (Tamiflu) 75 Mg Cap, 75 MG PO BID, #10 CAP 0 Refills Prov:JAVY CAPONE MD 03/27/24 Clindamycin HCl (Clindamycin HCl) 300 Mg Capsule, 1 CAP PO QID for 7 Days, #28 CAP 0 Refills Prov:JAVY CAPONE MD 12/19/23 Lactobacillus Acidophilus (Probiotic Acidophilus) 2 Billion Cell Tablet, 1 EACH PO ACHS for 5 Days, #20 TAB Prov:EMILY THAKKAR NP 06/03/23 Levofloxacin (Levofloxacin) 500 Mg Tablet, 500 MG PO DAILY for 5 Days, #5 TAB Prov:EMILY THAKKAR NP 06/03/23 Simvastatin (Simvastatin) 20 Mg Tablet, 40 MG PO HS for 30 Days, #30 TAB Prov:DUNCAN GREGORY Jr., MD 12/17/18 Reported Medications Albuterol Sulfate (Ventolin Hfa/Proventil Hfa/Proair Hfa) 90 Mcg Puff, 90 MCG IH AD PRN for WHEEZING, INHALER 06/01/23 Gabapentin (Gabapentin) 400 Mg Capsule, 300 MG PO TID, CAP 06/01/23 Methocarbamol (Methocarbamol) 500 Mg Tablet, 500 MG PO Q6HPRN PRN for MUSCLE SPASMS, TAB 02/07/23 Cholecalciferol (Vitamin D3) (Vitamin D3) 125 Mcg (5000 Unit) Capsule, 125 MCG PO DAILY, CAP 02/07/23 Aspirin (ASPIRIN 81 MG ECTAB) 81 Mg Ectab, 81 MG PO DAILY, TAB.EC 02/07/23 Metformin HCl (Metformin HCl) 1,000 Mg Tablet, 1000 MG PO BIDMEALS, TAB 02/07/23 Duloxetine HCl (Duloxetine HCl) 60 Mg Capsule.dr, 60 MG PO DAILY, CAP 02/07/23 Amlodipine Besylate (Amlodipine Besylate) 10 Mg Tablet, 10 MG PO DAILY for 30 Days, #30 TAB 0 Refills 02/07/23 Losartan/Hydrochlorothiazide (Hyzaar 100-25 Tablet) 1 Each Tablet, 1 EACH PO DAILY, TAB 12/08/18 Past Medical History Past Medical History: CVA, Diabetes-Type II, High Cholesterol, Hypertension, Other Additional Past Medical Hx: neuropathy Surgical History: Hysterectomy, Cholecystectomy, Other Surgical History Other: exploratory lap Review of System Dictation Constitutional: Negative for fever,chills, and weight loss Eyes: Negative for injury, pain,redness, and discharge ENT: Per HPI Cardiovascular: Negative for chest pain, palpitations, and edema Respiratory: Negative for shortness of breath, cough, and wheezing, Skin: Negative for rash, and discoloration Neuro: Per HPI Psych: Negative for suicide ideation, homicidal ideation, and hallucinations Initial Vital Sign VS Vital Signs Date Time Temp Pulse Resp B/P (MAP) Pulse Ox O2 Delivery O2 Flow Rate FiO2 12/16/24 08:03 97.9 83 16 121/77 96 Room Air 0 12/16/24 08:06 21 Physical Exam Dictation General: awake, alert, NAD Head/Face: Normocephalic, atraumatic Eyes: PERRL, EOMI, vision at baseline ENT: oral cavity clear, TMs clear, no signs of infection Neck: Trachea midline, supple, no nuchal rigidity Cardiovascular: RRR, normal S1/S2, No MRGs, no JVD Respiratory: CTAB, no respiratory distress, No rales or wheezes Abdomen: Soft, non-tender, non-distended, normal bowel sounds, no guarding or rebound. Skin: Warm, dry, normal turgor, no rash MS/Extremity: Pulses equal, no cyanosis, neurovascular intact, FROM Neuro: COAx4, GCS 15, strength 5/5, CN 2-12 intact, normal cerebellar exam, normal gait, Psych: Normal behavior, mood, and affect normal ED Course ED Course Orders Procedure Category Date Status Time Morphine 4mg Syg PHA 12/16/24 Complete (Morphine 4mg Syg) 09:30 Ondansetron 4mg Inj PHA 12/16/24 Complete (Zofran 4mg Inj) 09:30 Ct Head/Brain W/O CT 12/16/24 Resulted Contrast 09:03 Ct Maxillofacial W/O CT 12/16/24 Resulted Contrast 09:03 Current Medications Medications (Trade) Dose Ordered Sig/Satinder Route PRN Reason Start Time Stop Time Status Last Admin Dose Admin Morphine Sulfate (morPHINE 4MG SYG) 4 mg ONCE ONCE IVP 12/16/24 09:30 12/16/24 09:31 DC 12/16/24 09:25 Ondansetron HCl (zoFRAN 4MG INJ) 4 mg ONCE ONCE IVP 12/16/24 09:30 12/16/24 09:31 DC 12/16/24 09:22 Vital Signs Date Time Temp Pulse Resp B/P (MAP) Pulse Ox O2 Delivery O2 Flow Rate FiO2 12/16/24 11:41 98.1 74 17 106/62 96 Room Air* 0 12/16/24 10:30 72 16 100/60 95 Room Air* 0 12/16/24 08:57 98.4 75 21 102/66 95 Room Air* 0 12/16/24 08:06 97.9 83 16 121/77 96 Room Air* 0 12/16/24 08:03 97.9 83 16 121/77 96 Room Air 0 Medical Decision Making MDM MDM: Differential diagnosis: Rationale: Tests considered and ordered secondary to shared decision making include: Previous outside records reviewed: Old ER visits. Risk of complication and/or morbidity or mortality of patient management: None Medications-Per medication reconciliation Need for hospitalization: Patient does not meet criteria for hospitalization. Need for emergency major/minor surgery: No There are no social concerns with this patient. Prescription drug management Prescriptions will include symptomatic care Patient's prior external medical records from other ER visits were reviewed by me as indicated. Prior testing and results from previous visits were reviewed. Prior tests were taken into account with medical decision making and resource utilization, independent historian/historians were used to obtain complete medical history. I independently interpreted the test that were performed, results were reviewed by me and considered findings on radiology if ordered. Medical management and examination interpretation discussions were had by me with other qualified healthcare professionals as indicated for the patient's care. 58-year-old female with chronic sinusitis stable exam CT of the head negative, stable for discharge prescriptions given. DX & DISP Disposition: Discharge Departure Impression: Primary Impression: Chronic sinusitis Condition: Stable Scripts Doxycycline Hyclate (Doxycycline Hyclate) 100 Mg Capsule 1 CAP PO BID for 10 Days, #20 CAP 0 Refills Prov: PAULINO BROWNING MD 12/16/24 Referrals: JACQUELYN REYNOLDS [employer] SERVICE TECHNICIAN- (PCP) PAULINO BROWNING MD Dec 16, 2024 11:47
[2024-12-16 12:43] VITALS: BP 102/67; PULSE 69; RESP 17; TEMP 98.3; O2SAT 95
--- NOTE | 2024-12-16 12:48 | NUR ---
DC PATIENT WAS DC'D BY DR Henriquez TODAY, I DC'D PATIENTS IV WITH CATH STILL INTACT AND APPLIED 2X2 GAUZE WITH COBAN, I EXPLAINED TO PATIENT TO FOLLOW UP WITH PCP, PROVIDED INFO BASED ON DIAGNOSIS, EXPLAINED NEW PRESCRIPTIONS AND HOW TO TAKE THEM, AND ANSWERED ANY FOLLOW UP QUESTIONS PATIENT AMBULATED OUT OF ED, NO COMPLICATIONS
== END 2024-12-16 12:00 | disposition home or self-care (01) ==
LOC: EDH 08:02
DX: J32.9 Chronic sinusitis, unspecified (principal); E11.9 Type 2 diabetes mellitus without complications; E78.00 Pure hypercholesterolemia, unspecified; I10 Essential (primary) hypertension; Z79.82 Long term (current) use of aspirin; Z79.899 Other long term (current) drug therapy; Z86.73 Personal history of transient ischemic attack (TIA), and cerebral infarction without residual deficits; Z90.49 Acquired absence of other specified parts of digestive tract; Z90.710 Acquired absence of both cervix and uterus
CPT/HCPCS: 99285; 70450; 96374; 96375; 70486; J2405; J2270

== ENCOUNTER 2025-01-18 19:26 | Emergency (ER) | payer OTHER, MEDICARE ==
[~2025-01-18] VITALS: Ht 157.5 cm; Wt 72.1 kg
[~2025-01-18 19:26] MED LIST changes: +DOXY100C5 PO
--- NOTE | 2025-01-18 20:53 | HMCIMG ---
EXAM: CR right ankle, 3 View. CLINICAL HISTORY: pain COMPARISON: None provided. FINDINGS: BONES: No acute fracture or aggressive appearing osseous lesion. Heterotopic ossification likely reflects a prior anterior talofibular ligament injury. JOINTS: The joint spaces appear within normal limits. No dislocation. No radiographic evidence of a joint effusion. SOFT TISSUES: The soft tissues are unremarkable. IMPRESSION: 1. No acute osseous injury. /[place]
--- NOTE | 2025-01-18 21:04 | ERN ---
ED Note History of Present Illness Stated Complaint: C/O RT ANKLE PAIN ON AND OFF X 1 MONTH Chief Complaint: Ankle Problem Time Seen by MD: 19:28 Time Seen by Midlevel: 19:28 Dictation: The Patient is a 59-year-old female with a history of diabetes who presents to the emergency department with complaints of right ankle pain on and off for about a month.. Patient denies any recent injuries. Denies any fevers or any other associated symptoms. Allergies: Coded Allergies: No Known Allergies (Verified Allergy, Unknown, 12/08/18) Home Meds Active Scripts Meloxicam (Meloxicam) 15 Mg Tablet, 1 TAB PO DAILY for 7 Days, #7 TAB 0 Refills Prov:ISHAN GRAY 01/18/25 Doxycycline Hyclate (Doxycycline Hyclate) 100 Mg Capsule, 1 CAP PO BID for 10 Days, #20 CAP 0 Refills Prov:PAULINO BROWNING MD 12/16/24 Amoxicillin/Potassium Clav (Amox Tr-K Clv 875-125 mg Tab) 875 Mg-125 Mg Tablet, 1 EACH PO BID for 7 Days, #14 TAB 0 Refills Prov:ANTONIETA OLEA 11/23/24 Ondansetron (Ondansetron Odt) 4 Mg Tab.rapdis, 4 MG PO BID for 7 Days, #14 TAB Prov:ANTONIETA OLEA 11/23/24 Oseltamivir Phosphate (Tamiflu) 75 Mg Cap, 75 MG PO BID, #10 CAP 0 Refills Prov:JAVY CAPONE MD 03/27/24 Clindamycin HCl (Clindamycin HCl) 300 Mg Capsule, 1 CAP PO QID for 7 Days, #28 CAP 0 Refills Prov:JAVY CAPONE MD 12/19/23 Lactobacillus Acidophilus (Probiotic Acidophilus) 2 Billion Cell Tablet, 1 EACH PO ACHS for 5 Days, #20 TAB Prov:EMILY THAKKAR NP 06/03/23 Levofloxacin (Levofloxacin) 500 Mg Tablet, 500 MG PO DAILY for 5 Days, #5 TAB Prov:EMILY THAKKAR NP 06/03/23 Simvastatin (Simvastatin) 20 Mg Tablet, 40 MG PO HS for 30 Days, #30 TAB Prov:DUNCAN GREGORY Jr., MD 12/17/18 Reported Medications Albuterol Sulfate (Ventolin Hfa/Proventil Hfa/Proair Hfa) 90 Mcg Puff, 90 MCG IH AD PRN for WHEEZING, INHALER 06/01/23 Gabapentin (Gabapentin) 400 Mg Capsule, 300 MG PO TID, CAP 06/01/23 Methocarbamol (Methocarbamol) 500 Mg Tablet, 500 MG PO Q6HPRN PRN for MUSCLE SPASMS, TAB 02/07/23 Cholecalciferol (Vitamin D3) (Vitamin D3) 125 Mcg (5000 Unit) Capsule, 125 MCG PO DAILY, CAP 02/07/23 Aspirin (ASPIRIN 81 MG ECTAB) 81 Mg Ectab, 81 MG PO DAILY, TAB.EC 02/07/23 Metformin HCl (Metformin HCl) 1,000 Mg Tablet, 1000 MG PO BIDMEALS, TAB 02/07/23 Duloxetine HCl (Duloxetine HCl) 60 Mg Capsule.dr, 60 MG PO DAILY, CAP 02/07/23 Amlodipine Besylate (Amlodipine Besylate) 10 Mg Tablet, 10 MG PO DAILY for 30 Days, #30 TAB 0 Refills 02/07/23 Losartan/Hydrochlorothiazide (Hyzaar 100-25 Tablet) 1 Each Tablet, 1 EACH PO DAILY, TAB 12/08/18 Past Medical History Past Medical History: Diabetes-Type II, High Cholesterol, Hypertension, Other Additional Past Medical Hx: HX OF NEUROPATHY Surgical History: Hysterectomy Surgical History Other: exploratory lap RN Note Reviewed/Agreed w/PFSH: Yes Review of System Dictation Constitutional: Negative for fever,chills, and weight loss Eyes: Negative for injury, pain,redness, and discharge ENT: Negative for injury,pain or swelling Cardiovascular: Negative for chest pain, palpitations, and edema Respiratory: Negative for shortness of breath, cough, and wheezing, Abdomen/GI: Negative for abdominal pain, nausea, vomiting, diarrhea, and constipation Back: Negative for injury and pain : Negative for injury, bleeding and discharge MS/Extremity: Positive for right ankle pain Skin: Negative for rash, and discoloration Neuro: Negative for headache, weakness, numbness, tingling, and seizure Psych: Negative for suicide ideation, homicidal ideation, and hallucinations Initial Vital Sign VS Vital Signs Date Time Temp Pulse Resp B/P (MAP) Pulse Ox O2 Delivery O2 Flow Rate FiO2 01/18/25 19:28 98.4 89 20 110/72 96 Room Air 01/18/25 19:36 0 21 Physical Exam Dictation Vital Signs reviewed General Appearance: Alert, oriented x 3, no acute distress, well developed, nourished. Head and Face: non-traumatic. Eyes: PERRL, pink conjunctivas, eyelid no trauma, anterior chamber with arcus senilis. Ears: Pinnas intact and no signs of trauma or erythema ear canals clear and no discharge TM no erythema Nose: No discharge, no bleeding. Oropharynx: Mouth normal, tongue pink. pharynx clear,no erythema, tonsils no exudates, no abscesses noted, mucous membrane moist Neck: Supple, non-tender, no thyromegaly, no masses, no JVD, no bruits Breast:Deferred Chest:No tenderness, no crepitus, no paradoxical movement, no retractions Lungs:Clear, well-ventilated, symmetric, no rales, no wheezing, no rhonchi, no stridor, good breath sounds bilaterally Heart: Regular rate, regular rhythm, no murmur, no gallops Vascular: no peripheral edema, dorsalis pedis 3+ bilaterally Abdomen: Soft, positive bowel sounds, nondistended, no guarding, nontender, no rebound, no masses no hepatomegaly, no splenomegaly, no Schneider's sign, no hernias. Rectal: Deferred Genital: Deferred Neurological: Normal speech, motor function intact, sensory function intact Musculoskeletal: Neck nontender, full range of motion, back nontender, full range of motion, Extremities: nontender, full range of motion Skin: Color pink, dry, no turgor, no rash, no lacerations, no abrasions, no contusions. Lymphatic: Deferred Results (Laboratory/Radiology) Laboratory/Radiology REASON: pain ORDERING PHYSICIAN: ISHAN GRAY SWING TENDER PROCEDURE: [id number] - ANKLE COMP 3VWS RT EXAM: CR right ankle, 3 View. CLINICAL HISTORY: pain COMPARISON: None provided. FINDINGS: BONES: No acute fracture or aggressive appearing osseous lesion. Heterotopic ossification likely reflects a prior anterior talofibular ligament injury. JOINTS: The joint spaces appear within normal limits. No dislocation. No radiographic evidence of a joint effusion. SOFT TISSUES: The soft tissues are unremarkable. IMPRESSION: 1. No acute osseous injury. /[facility] Reviewed?: Yes ED Course ED Course Orders Procedure Category Date Status Time Ankle Comp 3vws Rt RAD 01/18/25 Resulted 19:49 Ketorolac 60mg/2ml PHA 01/18/25 Complete (Toradol 60mg/2ml) 20:00 Current Medications Medications (Trade) Dose Ordered Sig/Satinder Route PRN Reason Start Time Stop Time Status Last Admin Dose Admin Ketorolac Tromethamine (toRADol 60MG/ 2ML) 60 mg ONCE ONCE IM 01/18/25 20:00 01/18/25 20:01 DC 01/18/25 20:18 Vital Signs Date Time Temp Pulse Resp B/P (MAP) Pulse Ox O2 Delivery O2 Flow Rate FiO2 01/18/25 19:36 98.6 74 16 118/59 95 Room Air* 0 21 01/18/25 19:28 98.4 89 20 110/72 96 Room Air Medical Decision Making MDM The Patient is a 59-year-old female with a history of diabetes who presents to the emergency department with complaints of right ankle pain on and off for about a month.. Patient denies any recent injuries. Denies any fevers or any other associated symptoms. No obvious fracture seen on x-ray. No swelling. On physical exam patient is neurovascularly intact, in no acute distress, no erythema or swelling noted to right ankle, patient will be discharged to follow up PCP. Differential diagnosis: Ankle fracture, ankle sprain, ankle dislocation Need for hospitalization: Patient does not meet criteria for hospitalization. There are no social concerns with this patient. DX & DISP Disposition: Discharge Departure Impression: Primary Impression: Right ankle pain Condition: Stable Scripts Meloxicam (Meloxicam) 15 Mg Tablet 1 TAB PO DAILY for 7 Days, #7 TAB 0 Refills Prov: ISHAN GRAY SWING TENDER 01/18/25 Additional Instructions: Your x-ray was unremarkable. Please follow up with your primary doctor in 1-2 days. If anything worsens please return to ER. FOLLOW-UP WITH PRIMARY CARE PROVIDER IN 1 TO 2 DAYS. TAKE MEDICATIONS DIRECTED HERE IN THE EMERGENCY ROOM. OKAY TO CONTINUE HOME MEDICATIONS UNLESS OTHERWISE DISCUSSED DURING YOUR VISIT IN THE EMERGENCY ROOM TODAY. RETURN TO YOUR NEAREST EMERGENCY ROOM IF SYMPTOMS WORSEN OR IF THERE IS NO IMPROVEMENT. CALL 911 IF YOU NEED IMMEDIATE ASSISTANCE. TAKE TYLENOL [id number] NEEDED AND IF NO CONTRAINDICATIONS ARE PRESENT. INCREASE ORAL HYDRATION. A WOUND CULTURE OR URINE CULTURE WAS ORDERED HERE IN THE EMERGENCY ROOM DEPARTMENT PLEASE FOLLOW-UP WITH PRIMARY CARE PROVIDER AND ADVISE THEM TO GET REPEAT PORTS FROM OUR FACILITY. IF YOU HAD ANY CNOTRERAS WRAP/SPLINTS THAT WERE APPLIED HERE, PLEASE DO NOT REMOVE THEM UNTIL YOU SEE YOUR PRIMARY CARE OR SPECIALTY. Referrals: JACQUELYN REYNOLDS-GENOVEVA (PCP) Time of Disposition: 21:17 I have reviewed the case, and I agree with, Diagnosis and Plan ISHAN GRAY Jan 18, 2025 21:04
[2025-01-18] MEDS ORDERED: MELO-108 PO (21:15)
--- NOTE | 2025-01-18 21:21 | NUR ---
PER ED SUPERVISOR [employer], CONTRERAS WRAP APPLIED TO RIGHT ANKLE.
[2025-01-18 21:22] VITALS: BP 120/58; PULSE 68; RESP 16; TEMP 98.6; O2SAT 98
== END 2025-01-18 21:29 | disposition home or self-care (01) ==
LOC: EDH 19:26
DX: M25.571 Pain in right ankle and joints of right foot (principal); E11.40 Type 2 diabetes mellitus with diabetic neuropathy, unspecified; E78.00 Pure hypercholesterolemia, unspecified; I10 Essential (primary) hypertension; Z79.1 Long term (current) use of non-steroidal anti-inflammatories (NSAID); Z79.82 Long term (current) use of aspirin; Z79.899 Other long term (current) drug therapy; Z90.710 Acquired absence of both cervix and uterus
CPT/HCPCS: 99284; 73610; 96372; J1885; 99283